=== PATIENT | female | born 1995 | race Two or more races ===

== ENCOUNTER 2024-05-08 12:51 | Inpatient (IN) | payer OTHER ==
[~2024-05-08] VITALS: Ht 162.6 cm; Wt 59.0 kg
[2024-05-08 15:31] VITALS: BP 106/70; PULSE 67; RESP 14; TEMP 98.4; O2SAT 97
[2024-05-08 18:13] LABS: Basophils # (auto) 0.1 10 ^3/uL (0-0.2); Basophils % (auto) 1.1 % (0.0-2.0); Eosinophils # (auto) 0.3 10 ^3/uL (0-0.8); Eosinophils % (auto) 2.7 % (0.0-7.0); Hematocrit 44.1 % (36.0-46.0); Hemoglobin 14.9 g/dL (12.2-16.2); Lymphocytes # (auto) 3.7 10 ^3/uL (0.4-5.4); Lymphocytes % (auto) 33.1 % (10.0-50.0); Mean Corpuscular Hemoglobin 29.9 pg (28.0-32.0); Mean Corpuscular Hgb Conc. 33.8 g/dL (32.0-36.0); Mean Corpuscular Volume 88.2 fL (80.0-100.0); Monocytes # (auto) 0.7 10 ^3/uL (0-1.3); Monocytes % (auto) 5.9 % (0.0-12.0); Neutrophils # (auto) 6.5 10 ^3/uL (1.6-8.6); Neutrophils % (auto) 57.2 % (37.0-80.0); Nucleated Red Blood Cells % 0.1 %; Red Cell Distribution Width 13.4 % (11.8-14.3); White Blood Cell 11.3 10^3/uL (4.4-10.8)
[2024-05-08 18:31] LABS: INR 1.08 (0.9-1.15); Partial Thromboplastin Time 26.5 SEC (24.5-34.5); Prothrombin Time 11.4 sec (9.3-11.8)
[2024-05-08 18:34] LABS: Alanine Aminotransferase 12 U/L (7-40); Albumin 4.3 g/dL (3.2-4.8); Alkaline Phosphatase 50 U/L (46-116); Anion Gap 7 (5-15); Aspartate Aminotransferase < 8 U/L (13-40); BUN/Creatinine Ratio 14.5 (10.0-20.0); Bilirubin, Total 0.9 mg/dL (0.2-1.0); Blood Urea Nitrogen 9 mg/dL (9-23); Calcium 9.3 mg/dL (8.5-10.1); Carbon Dioxide 22 mmol/L (20-30); Chloride 109 mmol/L (98-107); Glucose 130 mg/dL (74-106); Potassium 3.2 mmol/L (3.5-5.1); Sodium 138 mmol/L (136-145)
[2024-05-08 20:45] VITALS: BP 108/65; PULSE 66; RESP 14; TEMP 98.3; O2SAT 97
[2024-05-08] MEDS: POTASSIUM CHL 20 Meq TABLET PO SCH (23:39)
[2024-05-08] MEDS: SODIUM CHLORIDE 0.9% 1,000 ML IV SCH (23:41)
[2024-05-09 01:00] VITALS: BP 105/62; PULSE 54; RESP 14; TEMP 98; O2SAT 98
[2024-05-09 05:00] VITALS: BP 109/64; PULSE 63; RESP 14; TEMP 98.6; O2SAT 98
[2024-05-09 06:26] LABS: Basophils # (auto) 0.1 10 ^3/uL (0-0.2); Basophils % (auto) 0.9 % (0.0-2.0); Eosinophils # (auto) 0.3 10 ^3/uL (0-0.8); Eosinophils % (auto) 3.2 % (0.0-7.0); Hematocrit 41.7 % (36.0-46.0); Hemoglobin 14.3 g/dL (12.2-16.2); Lymphocytes # (auto) 2.9 10 ^3/uL (0.4-5.4); Lymphocytes % (auto) 31.6 % (10.0-50.0); Mean Corpuscular Hemoglobin 30.1 pg (28.0-32.0); Mean Corpuscular Hgb Conc. 34.3 g/dL (32.0-36.0); Mean Corpuscular Volume 87.9 fL (80.0-100.0); Monocytes # (auto) 0.6 10 ^3/uL (0-1.3); Monocytes % (auto) 6.7 % (0.0-12.0); Neutrophils # (auto) 5.2 10 ^3/uL (1.6-8.6); Neutrophils % (auto) 57.6 % (37.0-80.0); Red Blood Cells 4.75 10^6/uL (4.0-5.20); Red Cell Distribution Width 13.1 % (11.8-14.3); White Blood Cell 9.1 10^3/uL (4.4-10.8)
[2024-05-09 06:47] LABS: Alanine Aminotransferase 11 U/L (7-40); Albumin 4.1 g/dL (3.2-4.8); Alkaline Phosphatase 47 U/L (46-116); Anion Gap 6 (5-15); Aspartate Aminotransferase < 8 U/L (13-40); BUN/Creatinine Ratio 12.1 (10.0-20.0); Blood Urea Nitrogen 8 mg/dL (9-23); Calcium 9.1 mg/dL (8.5-10.1); Carbon Dioxide 24 mmol/L (20-30); Chloride 108 mmol/L (98-107); Glucose 94 mg/dL (74-106); Potassium 3.8 mmol/L (3.5-5.1); Sodium 138 mmol/L (136-145)
[2024-05-09 06:48] LABS: Bilirubin, Total 0.8 mg/dL (0.2-1.0); Total Protein 6.5 g/dL (5.7-8.2)
[2024-05-09] MEDS ORDERED: KETOROLAC TROMETH 30 MG/ML 1ML VIAL ONE (07:06)
[2024-05-09] MEDS ORDERED: LIDOCAINE 2% (LOCAL ANESTH.) PF 5ml SDV ONE (07:06)
[2024-05-09] MEDS ORDERED: PROPOFOL 10 MG/ML 20 ML IV ONE (07:06)
[2024-05-09] MEDS ORDERED: ONDANSETRON HCL 4 MG/2 ML VIAL ONE ×2 (07:06→09:00)
[2024-05-09] MEDS ORDERED: DexAMETHasone SOD PHOS 10MG/1ML VIAL INJ ONE (07:06)
[2024-05-09] MEDS ORDERED: PHENYLEPHRINE HCL 10 MG/ML VL ONE (07:06)
[2024-05-09] MEDS ORDERED: HYDROmorphone HCL 2 MG/ML VL/or syr ONE (07:06)
[2024-05-09] MEDS ORDERED: ePHEDrine SULFATE 50 MG/ML AMP ONE (07:06)
[2024-05-09] MEDS ORDERED: MIDAZOLAM HCL 2MG/2ML 2ml VIAL (1mg/ml) ONE (07:06)
[2024-05-09] MEDS ORDERED: fentaNYL CITRATE 100 MCG/2 ML VL ONE (07:06)
[2024-05-09] MEDS ORDERED: GLYCOPYRROLATE 0.2 MG/ML 1ML VIAL ONE (07:07)
[2024-05-09] MEDS ORDERED: HYDR-4902 PO (07:16)
[2024-05-09] MEDS ORDERED: IBUP-1455 PO (07:16)
[2024-05-09] MEDS: ceFAZolin 2 GM/D5W50ml 50 ML IV ONE (07:20)
[2024-05-09] MEDS ORDERED: HYDROmorphone HCL 2 MG/ML VL/or syr IV PRN (07:45)
[2024-05-09] MEDS ORDERED: SUGAMMADEX 200mg/2ml Vial (100MG/ML) IV ONE (08:25)
[2024-05-09] MEDS ORDERED: LIDOCAINE W/ EPINEPHRINE 1% 20ML VIAL ONE (08:37)
[2024-05-09] MEDS ORDERED: MEPERIDINE HCL (25 MG/ML) 1ML VIAL ONE (08:38)
[2024-05-09 08:55] VITALS: O2SAT 96
[2024-05-09] MEDS: ONDANSETRON HCL 4 MG/2 ML VIAL IV ONE (09:03)
[2024-05-09] MEDS ORDERED: FAMOTIDINE (10MG/ML) 2ML VL IV ONE (09:31)
[2024-05-09] MEDS: FAMOTIDINE (10MG/ML) 2ML VL IV ONE (09:33)
[2024-05-09] MEDS: METOCLOPRAMIDE HCL 5MG/ml INJ 2ml VIAL IV ONE (10:02)
[2024-05-09 10:15] VITALS: RESP 16
[2024-05-09 10:22] VITALS: BP 127/74; PULSE 64; RESP 16; TEMP 97.9; O2SAT 96
[2024-05-09 12:00] VITALS: BP 116/61; PULSE 89; RESP 16; TEMP 98.3; O2SAT 100
[2024-05-09] MEDS: HYDROcodone-ACET 10/325MG TAB PO ONE (13:52)
[2024-05-09] MEDS: ONDANSETRON HCL 4 MG/2 ML VIAL IV PRN (13:52)
[2024-05-12 09:16] LABS: Hepatitis B Surface Antigen Negative (Negative)
[2024-05-12 09:37] LABS: Hepatitis C Antibody Negative (Negative)
== END 2024-05-09 16:46 | disposition home or self-care (01) | DRG 819 ==
LOC: EAST 14:30 → UNDOADMIN 14:30 → EAST 16:18
PROVIDERS: ADMIT Obstetrics & Gynecology; ATTEND Obstetrics & Gynecology
PROC: 0UB64ZZ Excision of Left Fallopian Tube, Percutaneous Endoscopic Approach (ICD-10-PCS; 2024-05-09)
PROC: 10T24ZZ Resection of Products of Conception, Ectopic, Percutaneous Endoscopic Approach (ICD-10-PCS; principal; 2024-05-09 07:20)
DX: O00.102 Left tubal pregnancy without intrauterine pregnancy (principal)
CPT/HCPCS: 36415; 76801; 76817; 80053; 84702; 85025; 85610; 85730; 86803; 86850; 86900; 86901; 87340; G0378; J1100; J1885; J2001; J2250; J2405; J2704; J3490